=== PATIENT | male | born 1945 | race Caucasian/White ===

== ENCOUNTER → 2017-06-09 | Outpatient (CLI) | payer MEDICARE, OTHER ==
[2017-06-09 11:38] LABS: APPEARANCE, URINE CLEAR (CLEAR); BACTERIA, URINE AUTO NEGATIVE (NEGATIVE); BILIRUBIN, URINE AUTO NEGATIVE (NEGATIVE); BLOOD, URINE BLOOD NEGATIVE (NEGATIVE); COLOR, URINE YELLOW (YELLOW); GLUCOSE, URINE (UA) AUTO NEGATIVE (NEGATIVE); KETONE, URINE AUTO NEGATIVE (NEGATIVE); LEUKOCYTE ESTERASE, URINE AUTO NEGATIVE (NEGATIVE); NITRITE, URINE AUTO NEGATIVE (NEGATIVE); PROTEIN, URINE AUTO NEGATIVE (NEGATIVE); RBC, URINE AUTO 0 /HPF (0-3); SPECIFIC GRAVITY URINE AUTO 1.019 (1.002-1.035); SQUAMOUS EPITHELIAL CELL UR AU 0 /HPF (0-6); UROBILINOGEN, URINE AUTO 0.2 mg/dL (0.0-2.0); WBC, URINE AUTO 0 /HPF (0-3)
[2017-06-09 12:22] LABS: INR 0.95; PROTHROMBIN TIME 12.8 SECONDS (12.4-14.5)
[2017-06-09 12:47] LABS: ERYTHROCYTE SEDIMENTATION RATE 12 mm/hr (0-20)
== END ==
LOC: M ADMPAT 10:22
DX: Z01.818 Encounter for other preprocedural examination (principal); M17.12 Unilateral primary osteoarthritis, left knee
CPT/HCPCS: 71046

== ENCOUNTER → 2017-06-29 | Outpatient (REF) | payer MEDICARE, OTHER ==
[2017-06-29 12:08] LABS: INR 2.25; PROTHROMBIN TIME 25.8 SECONDS (12.4-14.5)
== END ==
LOC: M LABDRAW1 11:03
DX: Z79.01 Long term (current) use of anticoagulants (principal)
CPT/HCPCS: 85610

== ENCOUNTER → 2017-07-01 | Outpatient (REF) | payer MEDICARE, OTHER ==
[2017-07-01 13:16] LABS: INR 1.85; PROTHROMBIN TIME 21.9 SECONDS (12.4-14.5)
== END ==
LOC: M LABDRAW1 11:12
DX: Z79.01 Long term (current) use of anticoagulants (principal)
CPT/HCPCS: 85610

== ENCOUNTER → 2017-07-05 | Outpatient (REF) | payer MEDICARE, OTHER ==
[2017-07-05 14:37] LABS: INR 1.28; PROTHROMBIN TIME 16.3 SECONDS (12.4-14.5)
== END ==
LOC: M LABDRAW1 11:25
DX: Z79.01 Long term (current) use of anticoagulants (principal)
CPT/HCPCS: 85610

== ENCOUNTER → 2017-07-08 | Outpatient (REF) | payer MEDICARE, OTHER ==
[2017-07-08 13:08] LABS: INR 1.45
== END ==
LOC: M LABDRAW1 12:48
DX: Z51.81 Encounter for therapeutic drug level monitoring (principal); Z79.01 Long term (current) use of anticoagulants
CPT/HCPCS: 85610

== ENCOUNTER → 2017-07-12 | Outpatient (REF) | payer MEDICARE, OTHER ==
[2017-07-12 12:08] LABS: INR 2.28
== END ==
LOC: M LABDRAW1 09:43
DX: Z79.01 Long term (current) use of anticoagulants (principal)
CPT/HCPCS: 85610

== ENCOUNTER → 2017-07-15 | Outpatient (REF) | payer MEDICARE, OTHER ==
[2017-07-15 16:04] LABS: INR 1.91; PROTHROMBIN TIME 22.5 SECONDS (12.4-14.5)
== END ==
LOC: M LAB REF 15:43
DX: Z79.01 Long term (current) use of anticoagulants (principal)
CPT/HCPCS: 85610

== ENCOUNTER → 2017-07-19 | Outpatient (REF) | payer MEDICARE, OTHER ==
[2017-07-19 12:59] LABS: INR 1.55
== END ==
LOC: M LABDRAW1 10:12
DX: Z51.81 Encounter for therapeutic drug level monitoring (principal); Z79.01 Long term (current) use of anticoagulants
CPT/HCPCS: 85610

== ENCOUNTER → 2018-05-16 | Outpatient (REF) | payer MEDICARE, OTHER ==
[~2018-05-16] MED LIST: /WARF25TA OR; ACET65TA OR; ASPI81TA52 PO; ASPI81TA83 OR; BENI20TA11 OR; COQ10 PO; COUM2.5T17 PO; CRES5TAB OR; FOLI1TAB11 PO; GLUCOS PO; IRBE300T10 PO; LYSI500T PO; MULTIVIT PO; NASA1SPR; PERC5TAB12 PO; PERC5TAB8 OR; SELE100T6 PO; SYMB16INH INH; VITA500T PO; VITAMIN D PO; ZYRT10CA PO; [UNRECOGNIZED DRUG - OTHER] PO
== END ==
LOC: M LAB REF 12:24
PROVIDERS: ATTEND Internal Medicine
DX: Z01.89 Encounter for other specified special examinations (principal)

== ENCOUNTER → 2018-06-16 | Outpatient (REF) | payer MEDICARE, OTHER ==
[~2018-06-16] MED LIST changes: -/WARF25TA OR; +COUM1TAB18 OR; +L-FO500T PO; -LYSI500T PO
[2018-06-16 12:46] LABS: BASO % 0.5 % (0.0-1.0); EOS # 0.5 10^3/uL (0.0-0.50); EOS % 7.7 % (0.0-3.0); HEMATOCRIT 42.1 % (42.0-52.0); HEMOGLOBIN 13.7 g/dl (13.5-17.5); LYMPH % 31.5 % (24.0-44.0); MEAN CORPUSCULAR HEMOGLOBIN 29.1 pg (27.0-33.0); MEAN CORPUSCULAR HGB CONC 32.5 g/dl (32.0-36.5); MEAN CORPUSCULAR VOLUME 89.6 fl (80.0-96.0); MONO # 0.7 10^3/uL (0.0-0.8); MONO % 11.2 % (0.0-5.0); NEUTROPHILS # 3.1 10^3/uL (1.8-7.7); NEUTROPHILS % 48.8 % (36.0-66.0); PLATELET COUNT, AUTOMATED 228 10^3/uL (150-450); WHITE BLOOD COUNT 6.3 10^3/uL (4.0-10.0)
[2018-06-16 13:19] LABS: ERYTHROCYTE SEDIMENTATION RATE 7 mm/hr (0-20)
== END ==
LOC: M LABDRAW1 12:14
PROVIDERS: ATTEND Physician Assistant
DX: Z96.652 Presence of left artificial knee joint (principal)

== ENCOUNTER → 2018-10-13 | Outpatient (REF) | payer MEDICARE, OTHER ==
[2018-10-13 12:53] LABS: BASO % 0.7 % (0.0-1.0); EOS # 0.3 10^3/uL (0.0-0.50); EOS % 5.5 % (0.0-3.0); HEMATOCRIT 40.7 % (42.0-52.0); HEMOGLOBIN 13.4 g/dl (13.5-17.5); LYMPH # 1.9 10^3/uL (1.5-4.5); LYMPH % 31.9 % (24.0-44.0); MEAN CORPUSCULAR HEMOGLOBIN 29.8 pg (27.0-33.0); MEAN CORPUSCULAR HGB CONC 32.9 g/dl (32.0-36.5); MEAN CORPUSCULAR VOLUME 90.4 fl (80.0-96.0); MONO # 0.7 10^3/uL (0.0-0.8); MONO % 11.4 % (0.0-5.0); NEUTROPHILS # 2.9 10^3/uL (1.8-7.7); NEUTROPHILS % 50.2 % (36.0-66.0); PLATELET COUNT, AUTOMATED 222 10^3/uL (150-450); WHITE BLOOD COUNT 5.8 10^3/uL (4.0-10.0)
[2018-10-13 13:53] LABS: ERYTHROCYTE SEDIMENTATION RATE 9 mm/hr (0-20)
== END ==
LOC: M LABDRAW1 10:19
PROVIDERS: ATTEND Physician Assistant
DX: Z96.652 Presence of left artificial knee joint (principal)

== ENCOUNTER → 2022-10-19 | Outpatient (CLI) | payer MEDICARE, OTHER ==
[~2022-10-19] MED LIST changes: -IRBE300T10 PO; +IRBE300T7 PO; +VITA-243 PO; -VITA500T PO
[2022-10-19 17:34] LABS: BASO % 0.6 % (0.0-1.0); EOS # 0.4 10^3/uL (0.0-0.5); EOS % 6.1 % (0.0-3.0); HEMATOCRIT 41.6 % (42.0-52.0); HEMOGLOBIN 13.6 g/dl (13.5-17.5); LYMPH # 2.3 10^3/uL (1.5-5.0); LYMPH % 33.9 % (24.0-44.0); MEAN CORPUSCULAR HEMOGLOBIN 29.5 pg (27.0-33.0); MEAN CORPUSCULAR HGB CONC 32.7 g/dl (32.0-36.5); MEAN CORPUSCULAR VOLUME 90.2 fl (80.0-96.0); MONO # 0.8 10^3/uL (0.0-0.8); NEUTROPHILS # 3.2 10^3/uL (1.5-8.5); NEUTROPHILS % 47.3 % (36.0-66.0); PLATELET COUNT, AUTOMATED 266 10^3/uL (150-450); RED BLOOD COUNT 4.61 10^6/uL (4.30-6.10); WHITE BLOOD COUNT 6.8 10^3/uL (4.0-10.0)
[2022-10-19 17:52] LABS: ERYTHROCYTE SEDIMENTATION RATE 17 mm/hr (0-20)
[2022-10-19 18:03] LABS: C REACTIVE PROTEIN QUANTITATIV < 0.40 MG/DL (<1.0)
[2022-10-19 18:05] LABS: RHEUMATOID FACTOR QUANT < 3.5 IU/ML (<14)
== END ==
LOC: M PLALAB 14:45
PROVIDERS: ATTEND Physician Assistant
DX: Z96.652 Presence of left artificial knee joint (principal); Z47.1 Aftercare following joint replacement surgery

== ENCOUNTER → 2023-01-04 | Outpatient (CLI) | payer MEDICARE, OTHER ==
[~2023-01-04] MED LIST changes: +ISOVUE-300 61% 100ML VIAL As Ordered ONE; +LIDOCAINE 1% MDV 20ML VIAL As Ordered ONE; +methylPREDNISolone SUSP 40MG/ML 1ML VIAL (DEPO MEDROL) As Ordered ONE
== END ==
LOC: M RAD 13:03
PROVIDERS: ATTEND Physician Assistant
DX: M16.12 Unilateral primary osteoarthritis, left hip (principal)
CPT/HCPCS: 20610; 77002; J1030; Q9967

== ENCOUNTER 2023-11-03 08:24 | Day surgery (SDC) | payer MEDICARE, OTHER ==
[~2023-11-03] VITALS: Ht 177.8 cm; Wt 90.1 kg
[~2023-11-03 08:24] MED LIST changes: +COQ150CH PO; +GABA-1171 PO; +GLUC1CAP10 PO; +IRBE300T25 PO; -IRBE300T7 PO; -ISOVUE-300 61% 100ML VIAL As Ordered ONE; +LEVOTAB10 PO; -LIDOCAINE 1% MDV 20ML VIAL As Ordered ONE; +LIDOCAINE 2% 100MG/5ML SDV (FOR ANES.) As Ordered ONE; +RA T500C2 PO; +ROSU5TAB40 PO; +THERTAB52 PO; +TIMOXEOPD OU; +XALA0.007 OU; +fentaNYL 100 MCG/2 ML INJECTION As Ordered ONE; -methylPREDNISolone SUSP 40MG/ML 1ML VIAL (DEPO MEDROL) As Ordered ONE; +propofoL 500 MG/50 ML VIAL As Ordered ONE
[2023-11-03] MEDS: NS 1,000 ML IV ONE (08:49)
[2023-11-03] MEDS ORDERED: ePHEDrine SULFATE 25 MG/5 ML(5MG/ML) SYRINGE As Ordered ONE (09:10)
[2023-11-03 09:26] VITALS: TEMP 98.3
[2023-11-03 09:47] VITALS: BP 144/80; O2SAT 97
== END 2023-11-03 10:02 | disposition home or self-care (01) ==
LOC: M OPP 08:24
PROVIDERS: ATTEND Internal Medicine Gastroenterology
DX: Z12.11 Encounter for screening for malignant neoplasm of colon (principal); Z86.010 Personal history of colon polyps; K64.0 First degree hemorrhoids; K57.30 Diverticulosis of large intestine without perforation or abscess without bleeding; K21.00 Gastro-esophageal reflux disease with esophagitis, without bleeding; R12 Heartburn; Z79.02 Long term (current) use of antithrombotics/antiplatelets; Z79.891 Long term (current) use of opiate analgesic; Z79.899 Other long term (current) drug therapy
CPT/HCPCS: 43239; 88305; G0105; J3010

== ENCOUNTER → 2024-01-25 | Outpatient (CLI) | payer MEDICARE, OTHER ==
[~2024-01-25] MED LIST changes: +ISOVUE-300 61% 100ML VIAL As Ordered ONE; +LIDOCAINE 1% MDV 20ML VIAL As Ordered ONE; -LIDOCAINE 2% 100MG/5ML SDV (FOR ANES.) As Ordered ONE; -ROSU5TAB40 PO; +ROSU5TAB49 PO; -fentaNYL 100 MCG/2 ML INJECTION As Ordered ONE; +methylPREDNISolone SUSP 40MG/ML 1ML VIAL (DEPO MEDROL) As Ordered ONE; -propofoL 500 MG/50 ML VIAL As Ordered ONE
== END ==
LOC: M RAD 12:57
PROVIDERS: ATTEND Physician Assistant
DX: M16.12 Unilateral primary osteoarthritis, left hip (principal)
CPT/HCPCS: 20610; 77002; J1010; Q9967